=== PATIENT | female | born 1990 | race Caucasian/White ===

== ENCOUNTER 2017-02-15 10:54 | Emergency (ER) | payer OTHER ==
[~2017-02-15] VITALS: Ht 157.5 cm; Wt 82.0 kg
[~2017-02-15 10:54] MED LIST: CEPH500C PO; PRENAT PO
[2017-02-15 10:57] VITALS: Ht 157.5 cm; Wt 82.0 kg
[2017-02-15 13:01] LABS: URINE BLOOD (Dip) POC Trace-lysed (NEGATIVE)
[2017-02-15 13:16] LABS: ADD SCAN DIFF NO
[2017-02-15 13:17] LABS: BASOPHILS % 0.5 % (0.0-2.0); EOSINOPHILS # 0.1 10^3/ul (0.0-0.5); EOSINOPHILS % 1.3 % (0.0-7.0); HEMOGLOBIN 13.3 g/dl (12.0-16.0); LYMPHOCYTES # 2.7 10^3/ul (0.8-2.9); LYMPHOCYTES % 31.8 % (15.0-51.0); MEAN CORPUSCULAR HGB CONC 34.1 g/dl (32.0-37.0); MEAN CORPUSCULAR VOLUME 85.2 fl (82.0-101.0); MEAN PLATELET VOLUME 11.1 fl (7.4-10.4); MONOCYTE # 0.6 10^3/ul (0.3-0.9); MONOCYTES % 7.1 % (0.0-11.0); NEUTROPHILS % 59.1 % (39.0-77.0); PLATELET COUNT 234 10^3/UL (140-415); RED BLOOD COUNT 4.58 10^6/ul (4.20-5.40); WHITE BLOOD COUNT 8.5 10^3/ul (4.8-10.8)
--- NOTE | 2017-02-15 13:42 | ERD ---
ER Documentation Chief Complaint Date/Time DATE: 02/15/17 TIME: 13:41 Chief Complaint RT HAND SWELLING AND WEAKNESS, GENERALIZED WEAKNESS, SEES THINGS HPI This is a 26-year-old female who presents to the emergency department today complaining of weakness in her right hand for the past month and "drops things" . States that she works in the [employer] department of a [employer]. States that she has been feeling weak for quite some time. States that she saw her doctor 3 weeks ago and her doctor gave her medication however she states that "it was a drug" and she did not want to take it. States that her back is itching. Denies any headache, dizziness, blurred vision, fevers or chills, chest pain or shortness of breath ROS All systems reviewed and are negative except as per history of present illness. Medications Home Meds Active Scripts Naproxen* (Naprosyn*) 500 Mg Tablet, 500 MG PO BID Y for PAIN AND/OR INFLAMMATION, #30 TAB Prov:CARLOS MORALES PA-C 02/15/17 Reported Medications Cephalexin* (Cephalexin*) 500 Mg Capsule, 500 MG PO Q6, #28 CAP 05/18/16 Multivit/Min/Fol Ac/Iron/Pren* ( S*) 1 Tab Tab, 1 TAB PO DAILY, TAB 05/12/16 Allergies Allergies: Coded Allergies: Anesthetics - Amide Type (Verified Allergy, Unknown, 09/13/15) PMhx/Soc Medical and Surgical Hx: pt denies Medical Hx History of Surgery: Yes (C SECTION,CHOLECYSTECTOMY) Anesthesia Reaction: No Hx Neurological Disorder: No Hx Respiratory Disorders: No Hx Cardiac Disorders: No Hx Psychiatric Problems: No Hx Miscellaneous Medical Probl: No Hx Alcohol Use: No Hx Substance Use: No Hx Tobacco Use: No Smoking Status: Never smoker Physical Exam Vitals Vital Signs Date Time Temp Pulse Resp B/P Pulse Ox O2 Delivery O2 Flow Rate FiO2 02/15/17 10:57 98.9 84 16 153/67 98 Physical Exam Const: Talkative, no acute distress Head: Atraumatic Eyes: Normal Conjunctiva ENT: Normal External Ears, Nose and Mouth. Neck: Full range of motion..~ No meningismus. Resp: Clear to auscultation bilaterally Cardio: Regular rate and rhythm, no murmurs Abd: Soft, non tender, non distended. Normal bowel sounds Skin: No petechiae or rashes Back: No midline or flank tenderness Ext: Right hand with no obvious deformity. No effusion. No ecchymosis. Count Team Clerk strength 4 out of 5 right compared to left. Neur: Awake and alert. No gait ataxia. No focal neurologic deficits. Psych: Normal Mood and Affect Result Diagram: 02/15/17 1310 02/15/17 1310 Results 24 hrs Laboratory Tests Test 02/15/17 13:05 02/15/17 13:10 Bedside Urine pH (LAB) 7.0 Bedside Urine Protein (LAB) Trace Bedside Urine Glucose (UA) Negative Bedside Urine Ketones (LAB) Negative Bedside Urine Blood Trace-lysed Bedside Urine Nitrite (LAB) Negative Bedside Urine Leukocyte Esterase (L Trace White Blood Count 8.510^3/ul Red Blood Count 4.5810^6/ul Hemoglobin 13.3g/dl Hematocrit 39.0% Mean Corpuscular Volume 85.2fl Mean Corpuscular Hemoglobin 29.0pg Mean Corpuscular Hemoglobin Concent 34.1g/dl Red Cell Distribution Width 13.0% Platelet Count 89418^3/UL Mean Platelet Volume 11.1fl Neutrophils % 59.1% Lymphocytes % 31.8% Monocytes % 7.1% Eosinophils % 1.3% Basophils % 0.5% Nucleated Red Blood Cells % 0.0/100WBC Neutrophils # 5.010^3/ul Lymphocytes # 2.710^3/ul Monocytes # 0.610^3/ul Eosinophils # 0.110^3/ul Basophils # 0.010^3/ul Nucleated Red Blood Cells # 0.010^3/ul Sodium Level 139mmol/L Potassium Level 3.8mmol/L Chloride Level 104mmol/L Carbon Dioxide Level 26mmol/L Anion Gap 13 Blood Urea Nitrogen 10mg/dl Creatinine 0.56mg/dl Glucose Level 96mg/dl Calcium Level 9.1mg/dl Total Bilirubin 0.1mg/dl Direct Bilirubin 0.00mg/dl Indirect Bilirubin 0.1mg/dl Aspartate Amino Transf (AST/SGOT) 17IU/L Alanine Aminotransferase (ALT/SGPT) 33IU/L Alkaline Phosphatase 73IU/L Total Protein 7.1g/dl Albumin 4.7g/dl Globulin 2.40g/dl Albumin/Globulin Ratio 1.95 Procedures/MDM This is a 26-year-old female who presents to the emergency department today complaining of multiple vague complaints. Patient is in the same exam room with her mother who also has multiple complaints however given patient's complaint of weakness I did obtain laboratory work Laboratory work shows no elevated white blood cell count. She is not anemic. Platelets are within normal limits. Electrolytes are within normal limits. Glucose is within normal limits. Liver functions normal limits. test is negative. UA shows trace leukocyte esterase. Likely dirty catch. Patient's orthopedic exam was benign. Low suspicion for acute fracture dislocation. Patient symptoms may be related to carpal tunnel syndrome given that she works in the [employer] department of a [employer] and does repetitive movements as well as patient complaining of some weakness in her hand. Patient has no focal neurologic deficits. She has no gait ataxia and symptoms have been ongoing for quite some time and I do not feel that the patient requires a head CT as I have low suspicion for acute hemorrhage, abscess , mass. Patient has weakness of uncertain etiology. Low suspicion for sepsis, serious bacterial infection, abscess, mass, acute stroke, anemia, electrolyte abnormalities.. Patient was instructed to follow back up with her primary care doctor for further evaluation and management At this time the patient is stable for discharge and outpatient management. Patient should follow up with their PCP in the next 1-2 days. They may return to the emergency department sooner for any persistent or worsening of symptoms. Patient understood and agreed with the plan. Departure Diagnosis: Primary Impression: Multiple complaints Condition: CARLOS Mercado PA-C Feb 15, 2017 13:42
[2017-02-15 13:49] LABS: ALBUMIN 4.7 g/dl (3.3-4.9); ALBUMIN/GLOBULIN RATIO 1.95; BILIRUBIN,INDIRECT 0.1 mg/dl (0-1.1); BILIRUBIN,TOTAL 0.1 mg/dl (0.2-1.3); CALCIUM 9.1 mg/dl (8.4-10.2); CREATININE 0.56 mg/dl (0.44-1.00); POTASSIUM 3.8 mmol/L (3.5-5.1); TOTAL PROTEIN 7.1 g/dl (6.1-8.1)
[2017-02-15] MEDS ORDERED: NAPR-260 PO (14:39)
== END 2017-02-15 14:50 | disposition home or self-care (01) ==
LOC: FTE 10:54
DX: R22.31 Localized swelling, mass and lump, right upper limb (principal); R53.1 Weakness
CPT/HCPCS: 36415; 80053; 81003; 85025; 99283

== ENCOUNTER 2017-12-30 08:08 | Emergency (ER) | END 2017-12-30 09:11 | disposition home or self-care (01) ==

== ENCOUNTER 2018-06-20 12:04 | Emergency (ER) | END 2018-06-20 14:44 | disposition home or self-care (01) ==